=== PATIENT | female | born 1990 | race Two or more races ===

== ENCOUNTER 2019-08-25 10:55 | Inpatient (IN) | payer OTHER ==
[~2019-08-25] VITALS: Ht 165.1 cm; Wt 207.0 kg
[2019-08-25] MEDS ORDERED: PRENATAL 19 TA1 EACH PO (10:59)
[2019-08-25] MEDS ORDERED: ASA81 MG PO (11:00)
== END 2019-08-27 12:59 | disposition home or self-care (01) | DRG 807 ==
LOC: LDR 10:55 → OB/GYN 10:55 → LDR 11:49 → OB/GYN 19:29
PROVIDERS: ADMIT Obstetrics & Gynecology
PROC: 10E0XZZ Delivery of Products of Conception, External Approach (ICD-10-PCS; principal; 2019-08-25)
PROC: 0UQGXZZ Repair Vagina, External Approach (ICD-10-PCS; 2019-08-25)
PROC: 4A1HXCZ Monitoring of Products of Conception, Cardiac Rate, External Approach (ICD-10-PCS; 2019-08-25)
DX: O71.4 Obstetric high vaginal laceration alone (principal); Z37.0 Single live birth; Z3A.39 39 weeks gestation of pregnancy

== ENCOUNTER 2021-06-25 08:02 | Outpatient (CLI) | payer OTHER ==
[~2021-06-25 08:02] MED LIST: ASA81 MG PO; PRENATAL 19 TA1 EACH PO
== END 2021-06-25 09:00 | disposition home or self-care (01) ==
LOC: PRENATAL 08:02
PROVIDERS: ATTEND Obstetrics & Gynecology Maternal & Fetal Medicine
DX: O35.0XX1 Maternal care for (suspected) central nervous system malformation in fetus, fetus 1 (principal); O35.3XX1 Maternal care for (suspected) damage to fetus from viral disease in mother, fetus 1; O98.512 Other viral diseases complicating pregnancy, second trimester; Z36.89 Encounter for other specified antenatal screening; Z3A.20 20 weeks gestation of pregnancy